=== PATIENT | female | born 1990 | race Caucasian/White ===

== ENCOUNTER 2017-03-06 23:17 | Day surgery (SDC) | payer MEDICAID ==
[~2017-03-06] VITALS: Ht 170.2 cm; Wt 113.9 kg
[~2017-03-06 23:17] MED LIST: ACHYD1T PO; BENZ200C25 PO; CEPH-507 PO; CEPH500C PO; CYCL10TA9 PO; DOCU100C37 PO; DOXY100C2 PO; HYDR-1231 PO; HYDR-3583 PO; HYDR-3812 PO; IBP800T PO; IBUP-1773 PO; INDO25OR2 PO; INDO50CA PO; MEDR10TA9 PO; METF-380 PO; METR500T PO; ONDA8TAB9 PO; PREN-37 PO; PREN-93 PO
[2017-03-06] MEDS ORDERED: morphine INJ 10 MG/ML 1ML (SYR OR VIAL) IVP STA (23:35)
[2017-03-06] MEDS ORDERED: NS IV 1000 ML 1,000 ML IV ONE (23:35)
--- NOTE | 2017-03-06 23:35 | ED Abdominal Pain ---
General Chief Complaint: Abdominal/GI Problems Stated Complaint: RT SIDE PAIN,POSS FEVER,LIGHTHEADED Source of Information: Patient, Family (mom) Exam Limitations: No Limitations History of Present Illness Time Seen By Provider: 23:30 Initial Comments Patient presents to ER with chief complaint of right-sided back and flank pain that started 3 days ago and is constantly progressively getting worse. She is not accompanied by any nausea or chills diarrhea or skin rash or shortness of breath or chest pain. However she is having a fever she feel and is febrile in the ER tonight. She's never had a kidney stone or surgery on her abdomen except for a . She was seen in [place] earlier tonight and was given Toradol which she says did not help. Past she has received fend for pain but it was made her pass out. She says she took a Tylenol earlier today but it did not help much. She says she was told she had a bladder infection at [place] but that did not check her blood or give her any antibiotics. They gave her a prescription for antibiotics that she says she did not have the money to get it so she did not fill them. She is not sure what antibiotic that gave her. She has a Mirena in place Allergies and Home Medications Allergies Coded Allergies: fentanyl (Unverified Adverse Reaction, Intermediate, FLUSHING OF SKIN WITH WARM SENSATION AND FAINTING, 01/12/16) Home Medications Docusate Sodium 100 Mg Capsule, 100 MG PO BID PRN for CONSTIPATION, #40 Prescribed by: LOLLY DICKERSON on 05/17/16 1013 Hydrocodone/Acetaminophen 1 Each Tablet, 0 TAB PO Q4H PRN for PAIN, #50 Prescribed by: LOLLY DICKERSON on 05/17/16 1013 Ibuprofen 600 Mg Tablet, 600 MG PO Q6H, #80 Prescribed by: LOLLY DICKERSON on 05/17/16 1013 Vit/Iron Fumarate/FA 1 Each Tablet, 1 EACH PO DAILY, (Reported) Review of Systems Constitutional: No chills, No diaphoresis, No dizziness, fever, malaise Respiratory: Denies Cough, Denies Shortness of Air Cardiovascular: Denies Chest Pain, Denies Palpitations, Denies Syncope Gastrointestinal: See HPI, Abdominal Pain, Denies Constipated, Denies Diarrhea , Denies Nausea, Denies Vomiting Genitourinary: See HPI, Burning, Denies Discharge, Frequency, Flank Pain, Denies Hematuria, Pain Musculoskeletal: see HPI, back pain, No joint pain Skin: No pruritus, No rash Psychiatric/Neurological: Denies Headache, Denies Numbness Past Xjxrocn-Onagtk-Hhaaxt Hx Patient Social History Alcohol Use: Denies Use Recreational Drug Use: No Smoking Status: Never a Smoker Type Used: Cigarettes Recent Foreign Travel: No Contact w/Someone Who Travel: No Recent Hopitalizations: No Immunizations Up To Date Tetanus Booster (TDap): Less than 5yrs PED Vaccines UTD: Yes Date of Influenza Vaccine: May 18, 2015 Seasonal Allergies Seasonal Allergies: No Surgeries HX Surgeries: Yes (D&C, HERNIA REPAIR, CERCLAGE PLACEMENT) Surgeries: Abdominal Respiratory Hx Respiratory Disorders: No Cardiovascular Hx Cardiac Disorders: No Neurological Hx Neurological Disorders: No Reproductive System Hx Reproductive Disorders: Yes (BICORNUATE UTERUS, INCOMPETENT CERVIX) Sexually Transmitted Disease: No HIV/AIDS: No Female Reproductive Disorders: Denies Genitourinary Hx Genitourinary Disorders: No Gastrointestinal Hx Gastrointestinal Disorders: Yes Gastrointestinal Disorders: Gastroesophageal Reflux Musculoskeletal Hx Musculoskeletal Disorders: No Endocrine Hx Endocrine Disorders: No HEENT HX ENT Disorders: No Loss of Vision: Denies Hearing Impairment: Denies Cancer Hx Cancer: No Psychosocial Hx Psychiatric Problems: No Integumentary HX Skin/Integumentary Disorder: No Blood Transfusions Hx Blood Disorders: No Adverse Reaction to a Blood Tr: No (N/A) Family Medical History Significant Family History: No Pertinent Family Hx Family Medial History: Arthritis 19 MOTHER FH: COPD (chronic obstructive pulmonary disease) 19 MOTHER FH: bipolar disorder G8 BROTHER Physical Exam Vital Signs VS - Last 72 Hours, by Label 03/06/17 23:31 Temp 100.7 Pulse 131 Resp 18 B/P (MAP) 130/89 Pulse Ox 98 O2 Delivery Room Air Capillary Refill : General Appearance: WD/WN, mild distress Respiratory: lungs clear, normal breath sounds Cardiovascular: normal peripheral pulses, regular rate, rhythm, no edema Peripheral Pulses: 3+ Radial Pulses (R), 3+ Radial Pulses (L) Gastrointestinal: normal bowel sounds, non tender, soft, other (right flank pain) Extremities: normal range of motion, normal capillary refill Back: normal inspection, CVA tenderness (R), No CVA tenderness (L) Neurologic/Psychiatric: alert, oriented x 3 Skin: normal color, warm/dry Focused Exam Evaluation Sepsis Stage: Sepsis Possible Source: Genitouriary Time of Focused Exam: 23:52 Respiratory: Lungs Clear, Normal Breath Sounds, No Accessory Muscle Use, No Respiratory Distress Cardiovascular: Regular Rate, Rhythm (tachycardia), No Murmur, Normal Peripheral Pulses Capillary Refill: Less Than 3 Seconds Peripheral Pulses: 3+ Radial Pulses (R), 3+ Radial Pulses (L) Skin: normal color, warm/dry Lactic Acid Level Laboratory Tests Test 03/06/17 23:56 Lactic Acid Level 0.78 MMOL/L (0.50-2.00) Progress/Results/Core Measures Results/Orders Lab Results Laboratory Tests Test 03/06/17 23:35 03/06/17 23:56 Range/Units Urine Color YELLOW Urine Clarity SLIGHTLY CLOUDY Urine pH 7 5-9 Urine Specific [place] 1.010 L 1.016-1.022 Urine Protein 2+ H NEGATIVE Urine Glucose (UA) NEGATIVE NEGATIVE Urine Ketones NEGATIVE NEGATIVE Urine Nitrite NEGATIVE NEGATIVE Urine Bilirubin NEGATIVE NEGATIVE Urine Urobilinogen 4 H NORMAL MG/DL Urine Leukocyte Esterase 3+ H NEGATIVE Urine RBC (Auto) 4+ H NEGATIVE Urine RBC 5-10 H /HPF Urine WBC 2-5 /HPF Urine Squamous Epithelial Cells 2-5 /HPF Urine Crystals NONE /LPF Urine Bacteria FEW H /HPF Urine Casts NONE /LPF Urine Mucus NEGATIVE /LPF Urine Culture Indicated YES Urine Test NEGATIVE NEGATIVE White Blood Count 12.0 H 4.3-11.0 10^3/uL Red Blood Count 5.22 4.35-5.85 10^6/uL Hemoglobin 14.6 11.5-16.0 G/DL Hematocrit 44 35-52 % Mean Corpuscular Volume 84 80-99 FL Mean Corpuscular Hemoglobin 28 25-34 PG Mean Corpuscular Hemoglobin Concent 33 32-36 G/DL Red Cell Distribution Width 13.8 10.0-14.5 % Platelet Count 169 130-400 10^3/uL Mean Platelet Volume 11.0 H 7.4-10.4 FL Neutrophils (%) (Auto) 78 H 42-75 % Lymphocytes (%) (Auto) 11 L 12-44 % Monocytes (%) (Auto) 8 0-12 % Eosinophils (%) (Auto) 3 0-10 % Basophils (%) (Auto) 0 0-10 % Neutrophils # (Auto) 9.4 H 1.8-7.8 X 10^3 Lymphocytes # (Auto) 1.3 1.0-4.0 X 10^3 Monocytes # (Auto) 1.0 0.0-1.0 X 10^3 Eosinophils # (Auto) 0.4 H 0.0-0.3 10^3/uL Basophils # (Auto) 0.0 0.0-0.1 10^3/uL Prothrombin Time 13.7 12.2-14.7 SEC INR Comment 1.1 0.8-1.4 Activated Partial Thromboplast Time 34 24-35 SEC Sodium Level 138 135-145 MMOL/L Potassium Level 3.4 L 3.6-5.0 MMOL/L Chloride Level 108 H 98-107 MMOL/L Carbon Dioxide Level 19 L 21-32 MMOL/L Anion Gap 11 5-14 MMOL/L Blood Urea Nitrogen 9 7-18 MG/DL Creatinine 0.74 0.60-1.30 MG/DL Estimat Glomerular Filtration Rate > 60 BUN/Creatinine Ratio 12 Glucose Level 109 H 70-105 MG/DL Lactic Acid Level 0.78 0.50-2.00 MMOL/L Calcium Level 8.8 8.5-10.1 MG/DL Magnesium Level 1.5 L 1.8-2.4 MG/DL Total Bilirubin 2.0 H 0.1-1.0 MG/DL Aspartate Amino Transf (AST/SGOT) 22 5-34 U/L Alanine Aminotransferase (ALT/SGPT) 35 0-55 U/L Alkaline Phosphatase 87 40-136 U/L Total Protein 6.7 6.4-8.2 GM/DL Albumin 3.6 3.2-4.5 GM/DL My Orders Orders - AIDE COOPER Cbc With Automated Diff (03/06/17 23:35) Comprehensive Metabolic Panel (03/06/17 23:35) Hcg,Qualitative Urine (03/06/17 23:35) Lactic Acid Analyzer (03/06/17 23:35) Magnesium (03/06/17 23:35) Ua Culture If Indicated (03/06/17 23:35) Morphine Injection (Morphine Injection (03/06/17 23:35) Saline Lock/Iv-Start (03/06/17 23:35) Ns Iv 1000 Ml (Sodium Chloride 0.9%) (03/06/17 23:35) Blood Culture (03/06/17 23:35) Sputum Culture (03/06/17 23:35) Protime With Inr (03/06/17 23:35) Partial Thromboplastin Time (03/06/17 23:35) O2 (03/06/17 23:35) Saline Lock/Iv-Start (03/06/17 23:35) Ceftriaxone Injection (Rocephin Injectio (03/07/17 00:00) Urine Culture (03/06/17 23:35) Ct Abd/Pelvis Wo(Kidney Stone) (03/07/17 00:00) Chest 1 View, Ap/Pa Only (03/07/17 00:05) Magnesium Oxide Tablet (Mag Ox Tablet) (03/07/17 00:45) Potassium Chloride (Tablet) (K Dur Table (03/07/17 00:45) Morphine Injection (Morphine Injection (03/07/17 01:15) Medications Given in ED Current Medications Medications Dose Ordered Sig/Kristian Route Start Time Stop Time Status Last Admin Dose Admin Ceftriaxone Sodium 1000 mg/ Sodium Chloride 50 ml @ 100 mls/hr ONCE ONCE IV 03/07/17 00:00 03/07/17 00:30 DC 03/07/17 00:07 100 MLS/HR Magnesium Oxide 400 mg ONCE ONCE PO 03/07/17 00:45 03/07/17 00:46 DC 03/07/17 00:46 400 MG Morphine Sulfate 2 mg ONCE PRN IVP 03/07/17 01:15 03/07/17 05:17 DC 03/07/17 01:42 2 MG Potassium Chloride 20 meq ONCE ONCE PO 03/07/17 00:45 03/07/17 00:46 DC 03/07/17 00:46 20 MEQ Sodium Chloride 1,000 ml @ 0 mls/hr Q0M ONCE IV 03/06/17 23:35 03/06/17 23:39 DC 03/07/17 00:07 1,000 MLS/HR Vital Signs/I&O Vital Sign - Last 12Hours 03/06/17 23:31 Temp 100.7 Pulse 131 Resp 18 B/P (MAP) 130/89 Pulse Ox 98 O2 Delivery Room Air Progress Note #1: Time: 23:51 Progress Note Tachycardia and suspected urinary tract infection and fever of 100.7. We'll start a sepsis workup. She will not accept fentanyl or Toradol since she recently got it we will just try a very low-dose of morphine. We'll start her on Rocephin IV soon as blood cultures are obtained. Progress Note #2: Time: 00:02 Progress Note Urinalysis is only demonstrative of a few white blood cells 2-5 however there is a fair amount of red blood cells. Given her right flank pain a kidney stone rises in the differential. We will go ahead and add a CT abdomen without kidney stone study. Diagnostic Imaging Diagonstic Imaging: Xray Plain Films/CT/US/NM/MRI: chest Comments No acute cardiopulmonary processes noted. Reviewed: Reviewed by Me Diagonstic Imaging: CT Plain Films/CT/US/NM/MRI: abdomen (pelvis without kidney stone study) Comments No kidney stone noted. Intra-abdominal organs are otherwise grossly unremarkable for noncontrast try a CT with small nonspecific retroperitoneal lymph nodes no evidence of significant bowel loop dilatation suggesting obstructive process and there is a small amount of free fluid in the pelvis however is no evidence for free intraperitoneal gas. There are some mild right-sided perinephric stranding without definite evidence of hydronephrosis or your stone. Acute pyloric cannot be excluded also correlate with your clinical lab findings. The appendix is mildly prominent measuring up to 8 mm with a small appendicolith and very mild infiltration of the periappendiceal fat. Should consider mild acute appendicitis. Reviewed: Reviewed by Me Departure Communication Time/Spoke to Admitting Phy: 01:[address] Forman, General Surgery discussed the radiographic findings of the CT as well as her sepsis, mild white count, McBurney's point tenderness with rebound tenderness but no generalized peritonitis. Patient's fever of 100.7. Impression Impression: Primary Impression: Appendicitis Qualified Codes: K35.3 - Acute appendicitis with localized peritonitis Additional Impression: Sepsis Qualified Codes: A41.9 - Sepsis, unspecified organism Disposition: ADMITTED INPATIENT Condition: Stable Decision to Admit Reason: Admit from ER (General) Decision to Admit/Date: Mar 07, 2017 Time/Decision to Admit Time: 01:50 Departure-Patient Inst. Referrals: TIRSO MOE MD (PCP/Family) Primary Care Physician Copy Copies To 1: TIRSO MOE MD, TITUS J Mar 06, 2017 23:35
[2017-03-06 23:43] LABS: BILIRUBIN,URINE NEGATIVE (NEGATIVE); KETONES,URINE NEGATIVE (NEGATIVE); LEUKOCYTE ESTERASE ,URINE 3+ (NEGATIVE); NITRITE,URINE NEGATIVE (NEGATIVE); PH,URINE 7 (5-9); PROTEIN,URINE 2+ (NEGATIVE); UROBILINOGEN,URINE 4 MG/DL (NORMAL)
[2017-03-07] MEDS ORDERED: cefTRIAXone INJECTION 1,000 MG in NS (IVPB) 50 ML IV ONE ×2
[2017-03-07 00:14] LABS: BASOPHILS % (AUTO) 0 % (0-10); EOSINOPHILS # (AUTO) 0.4 10^3/uL (0.0-0.3); EOSINOPHILS % (AUTO) 3 % (0-10); LYMPHOCYTES # (AUTO) 1.3 X 10^3 (1.0-4.0); LYMPHOCYTES % (AUTO) 11 % (12-44); MEAN CORPUSCULAR HEMOGLOBIN 28 PG (25-34); MEAN CORPUSCULAR HGB CONC 33 G/DL (32-36); MEAN CORPUSCULAR VOLUME 84 FL (80-99); MONOCYTES % (AUTO) 8 % (0-12); NEUTROPHILS # (AUTO) 9.4 X 10^3 (1.8-7.8); NEUTROPHILS % (AUTO) 78 % (42-75); PLATELET COUNT 169 10^3/uL (130-400); RED BLOOD COUNT 5.22 10^6/uL (4.35-5.85); RED CELL DISTRIBUTION WIDTH 13.8 % (10.0-14.5)
[2017-03-07 00:35] LABS: ALANINE AMINOTRANSFERASE 35 U/L (0-55); ALBUMIN 3.6 GM/DL (3.2-4.5); ANION GAP 11 MMOL/L (5-14); ASPARTATE AMINO TRANSFERASE 22 U/L (5-34); BLOOD UREA NITROGEN 9 MG/DL (7-18); BUN/CREATININE RATIO 12; CALCIUM 8.8 MG/DL (8.5-10.1); CARBON DIOXIDE 19 MMOL/L (21-32); CHLORIDE 108 MMOL/L (98-107); CREATININE SERUM 0.74 MG/DL (0.60-1.30); GFR ESTIMATED > 60; GLUCOSE 109 MG/DL (70-105); MAGNESIUM 1.5 MG/DL (1.8-2.4); POTASSIUM 3.4 MMOL/L (3.6-5.0); SODIUM 138 MMOL/L (135-145); TOTAL PROTEIN 6.7 GM/DL (6.4-8.2)
[2017-03-07] MEDS ORDERED: KCL 20 MEQ TAB (K-DUR) PO ONE (00:45)
[2017-03-07] MEDS ORDERED: MAGNESIUM OXIDE (MAG-OX)400 MG TAB PO ONE (00:45)
[2017-03-07 01:06] LABS: INR 1.1 (0.8-1.4); PROTHROMBIN TIME PATIENT 13.7 SEC (12.2-14.7)
[2017-03-07] MEDS: morphine INJ 4 MG/ML 1 ML (VIAL/SYRINGE) IVP PRN ×5 (01:42→11:01)
[2017-03-07 03:22] VITALS: BP 123/81
[2017-03-07] MEDS ORDERED: NS IV 1000 ML 1,000 ML IV SCH (04:00)
[2017-03-07] MEDS ORDERED: ONDANSETRON 4 MG/2 ML (SDV) Z0FRAN IVP PRN ×2 (04:00→07:30)
[2017-03-07] MEDS ORDERED: BUP/EPI 0.25% 1:200,000 (MARCAINE) 10 ML VIAL IJ ONE (05:08)
[2017-03-07] MEDS ORDERED: ceFAZolin 1,000 MG (ANCEF) VIAL ONE (05:40)
[2017-03-07] MEDS ORDERED: metroNIDAZOLE 500MG/100ML IVPB 100 ML ONE (05:40)
[2017-03-07] MEDS ORDERED: ONDANSETRON 4 MG/2 ML (SDV) Z0FRAN ONE (05:42)
[2017-03-07] MEDS ORDERED: proPOfol 200 MG/20 ML (DIPRIVAN) VIAL IV ONE (05:42)
[2017-03-07] MEDS ORDERED: ROCURONIUM 50 MG/5 ML (ZEMURON) VIAL IV ONE (05:42)
[2017-03-07] MEDS ORDERED: SEVOFLURANE (ULTANE) 15 ML INHAL SOLN ONE (05:42)
[2017-03-07] MEDS ORDERED: MIDAZOLAM 2 MG/2 ML (VERSED) VIAL ONE (05:42)
[2017-03-07] MEDS ORDERED: LACTATED RINGERS 1,000 ML IV ONE ×2 (05:42→06:28)
[2017-03-07] MEDS ORDERED: LIDOCAINE PF 2% 5 ML (XYLOCAINE) VIAL ONE (05:42)
[2017-03-07] MEDS ORDERED: fentaNYL INJECTION 100 MCG/2 ML AMP ONE (05:43)
--- NOTE | 2017-03-07 06:01 | History & Physicial ---
History of Present Illness History of Present Illness Reason for visit/HPI right lower quadrant pain, nausea and anorexia for [address] confirms acute appendicitis. Date of Admission Mar 07, 2017 at 2:12 am Date Seen by Provider: Mar 07, 2017 Time Seen by Provider: 05:42 I consulted on this patient on 03/07/17 05:57 Attending Physician Alyssa Posadas MD Admitting Physician Mayra Gonzalez MD Consult Allergies and Home Medications Allergies Coded Allergies: fentanyl (Unverified Adverse Reaction, Intermediate, FLUSHING OF SKIN WITH WARM SENSATION AND FAINTING, 01/12/16) Home Medications Docusate Sodium 100 Mg Capsule, 100 MG PO BID PRN for CONSTIPATION, #40 Prescribed by: LOLLY DICKERSON on 05/17/16 1013 Hydrocodone/Acetaminophen 1 Each Tablet, 0 TAB PO Q4H PRN for PAIN, #50 Prescribed by: LOLLY DICKERSON on 05/17/16 1013 Ibuprofen 600 Mg Tablet, 600 MG PO Q6H, #80 Prescribed by: LOLLY DICKERSON on 05/17/16 1013 Vit/Iron Fumarate/FA 1 Each Tablet, 1 EACH PO DAILY, (Reported) Past Idcrpjf-Buqbdu-Laiycj Hx Patient Social History Marrital Status: single Employed/Student: employed Alcohol Use: Occasionally Uses Recreational Drug Use: No Smoking Status: Current Everyday Smoker Type Used: Cigarettes 2nd Hand Smoke Exposure: Yes Physical Abuse Screen: No Sexual Abuse: No Recent Foreign Travel: No Contact w/other who traveled: No Recent Hopitalizations: No Recent Infectious Disease Expo: No Immunizations Up To Date Tetanus Booster (TDap): Less than 5yrs Date of Influenza Vaccine: May 18, 2015 Seasonal Allergies Seasonal Allergies: No Surgeries HX Surgeries: Yes (D&C, HERNIA REPAIR, CERCLAGE PLACEMENT) Surgeries: Abdominal, Section Respiratory Hx Respiratory Disorders: No Cardiovascular Hx Cardiovascular Disorders: No Neurological Hx Neurological Disorders: No Reproductive System Hx Reproductive Disorders: Yes (BICORNUATE UTERUS, INCOMPETENT CERVIX) Sexually Transmitted Disease: No HIV/AIDS: No Female Reproductive Disorders: Polycystic Ovarian Dis Genitourinary Hx Genitourinary Disorders: No Gastrointestinal Hx Gastrointestinal Disorders: Yes Gastrointestinal Disorders: Gastroesophageal Reflux Musculoskeletal Hx Musculoskeletal Disorders: No Endocrine Hx Endocrine Disorders: No HEENT HX ENT Disorders: No Loss of Vision: Denies Hearing Impairment: Denies Cancer Hx Cancer: No Psychosocial Hx Psychiatric Problems: No Integumentary HX Skin/Integumentary Disorder: No Blood Transfusions Hx Blood Disorders: No Adverse Reaction to a Blood Tr: No (N/A) Family Medical History Significant Family History: No Pertinent Family Hx Family Hx: Arthritis 19 MOTHER Diabetes mellitus 19 FATHER FH: COPD (chronic obstructive pulmonary disease) 19 MOTHER FH: bipolar disorder G8 BROTHER FH: congestive heart failure 19 MOTHER Constitutional: malaise EENTM: no symptoms reported Respiratory: no symptoms reported Cardiovascular: no symptoms reported Gastrointestinal: abdominal pain (RLQ), loss of appetite, nausea Genitourinary: no symptoms reported Musculoskeletal: no symptoms reported Skin: no symptoms reported Psychiatric/Neurological: No Symptoms Reported Physical Exam Vital Signs Vital Sign - Last 12Hours 03/06/17 23:31 Temp 100.7 Pulse 131 Resp 18 B/P (MAP) 130/89 Pulse Ox 98 O2 Delivery Room Air Capillary Refill : Less Than 3 Seconds General Appearance: Moderate Distress HEENT: Normal ENT Inspection Neck: Normal Inspection Respiratory: Lungs Clear Cardiovascular: Regular Rate, Rhythm Gastrointestinal: Tenderness Rectal: Deferred Extremity: Normal Inspection Neurologic/Psychiatric: Alert, Oriented x3 Skin: Warm/Dry Assessment/Plan Assessment and Plan Lady with acute appendicitis. Offered laparoscopic appendectomy and reviewed the operative details, expected recovery, complications of wound infection and intra-abdominal abscess. Seems to be in agreement to proceed. Problems: Clinical Quality Measures DVT/VTE Risk/Contraindication: Risk Factor Score Per Nursin RFS Level Per Nursing on Admit: 2=Moderate ALYSSA POSADAS MD Mar 07, 2017 6:00 am
--- NOTE | 2017-03-07 06:01 | Progress Note-Pre Operative ---
Pre-Operative Progress Note H&P Reviewed The H&P was reviewed, patient examined and no changes noted. Date Seen by Provider: Mar 07, 2017 Time Seen by Provider: 05:41 Date H&P Reviewed: Mar 07, 2017 Time H&P Reviewed: 06:01 Pre-Operative Diagnosis: acute appendicitis ALYSSA POSADAS MD Mar 07, 2017 6:01 am
[2017-03-07] MEDS ORDERED: morphine INJ 10 MG/ML 1ML (SYR OR VIAL) ONE (06:28)
[2017-03-07] MEDS ORDERED: LACTATED RINGERS 1,000 ML IV SCH (06:30)
[2017-03-07] MEDS ORDERED: GLYCOPYRROLATE 0.2 MG/ML (ROBINUL) 2 ML VIAL ONE (06:37)
[2017-03-07] MEDS ORDERED: NEOSTIGMINE (BLOXIVERZ ) 1 MG/1ML 10 ML VIAL ONE (06:37)
--- NOTE | 2017-03-07 06:47 | Operative Report ---
Operative Report Date of Procedure/Surgery Mar 07, 2017 Surgeon (s) ALYSSA POSADAS MD Ring Cutter Lathe Operator (s): not applicable Post-Operative Diagnosis same Procedure Performed laparoscopic appendectomy Description of Procedure Anesthesia Type: General Estimated blood loss (mL): minimal Specimen(s) collected/removed appendix Description of the Procedure Indication for procedure: This lady presented with 2 days history of right lower quadrant abdominal pain, confirmed to be due to acute appendicitis by CT scan. She was offered laparoscopic appendectomy. Informed consent was obtained after reviewing the operative details and complications of wound infection and intra-abdominal abscess Description of the procedure: She was placed supine on the operative table and general anesthesia induced using an endotracheal tube. Ancef and Flagyl were administered intravenously as prophylaxis against wound infection. Sequential compression devices were placed around her legs, to minimize the risk of venous thrombosis. Abdomen was prepared and draped in the usual sterile manner. Due to previous repair of ventral hernia I elected to establish pneumoperitoneum using a Veress needle introduced over the left subcostal margin. Intra-abdominal pressure was maintained at 15 mmHg, using carbon dioxide insufflation. A 5 mm trocar was placed and anatomy visualized 30 laparoscope. Omentum was adherent to the undersurface of the umbilicus. Under direct view, I placed a 12 mm left lower quadrant and took down the omentum using endo-scissors. Subsequently, a 12 mm trocar was placed superior to the umbilicus, followed by a 5 mm trocar over the the right upper quadrant. Patient was then turned and Trendelenburg position, with the right side tilted up. Omentum was wrapped around the cecum. Once it was displaced, and inflamed, turgid appendix was found in a retrocecal position. Mesoappendix and the base of the appendix where managed using an Endo DUNCAN vascular stapler. Hemostasis along the staple line was satisfactory. Turbid fluid in the pelvis was suctioned and the area irrigated with saline. Appendix was then placed in an Endo Catch bag and removed via the supraumbilical trocar site. The fascia over this incision was closed using #1 Vicryl and skin incisions were closed using 4- 0 Vicryl, in a subcuticular fashion. 0.25 percent Marcaine with epinephrine was infiltrated along the incisions, both pre-emptively and at the conclusion of the operation. She tolerated the procedure well and was taken back to the nursing area in a stable condition. Findings of the Procedure See operative Allergies and Home Medications Allergies Coded Allergies: fentanyl (Unverified Adverse Reaction, Intermediate, FLUSHING OF SKIN WITH WARM SENSATION AND FAINTING, 01/12/16) Home Medications Docusate Sodium 100 Mg Capsule, 100 MG PO BID PRN for CONSTIPATION, #40 Prescribed by: LOLLY DICKERSON on 05/17/16 1013 Hydrocodone/Acetaminophen 1 Each Tablet, 0 TAB PO Q4H PRN for PAIN, #50 Prescribed by: LOLLY DICKERSON on 05/17/16 1013 Ibuprofen 600 Mg Tablet, 600 MG PO Q6H, #80 Prescribed by: LOLLY DICKERSON on 05/17/16 1013 Vit/Iron Fumarate/FA 1 Each Tablet, 1 EACH PO DAILY, (Reported) ALYSSA POSADAS MD Mar 07, 2017 6:46 am
[2017-03-07] MEDS ORDERED: HYDR-3820 PO (06:50)
--- NOTE | 2017-03-07 06:51 | Discharge Inst-Simple/Standard ---
Discharge Inst-Standard Discharge Medications New, Converted or Re-Newed RX: RX on Chart Patient Instructions/Follow Up Plan of Care/Instructions/FU: Band-Aids off in 48 hours. Follow-up in 10 days. Activity as Tolerated: Yes Discharge Diet: No Restrictions ALYSSA POSADAS MD Mar 07, 2017 6:51 am
[2017-03-07] MEDS ORDERED: HYDROcodone/APAP 5 MG/325 MG (LORTAB) TAB PO PRN (07:00)
[2017-03-07] MEDS ORDERED: fentaNYL INJECTION 100 MCG/2 ML AMP IV PRN (07:00)
[2017-03-07] MEDS ORDERED: ONDANSETRON 4 MG/2 ML (SDV) Z0FRAN IV PRN (07:00)
[2017-03-07] MEDS ORDERED: ceFAZolin INJECTION 1,000 MG in NS (IVPB) 50 ML IV NR ×2 (07:00→13:00)
--- NOTE | 2017-03-07 07:23 | Diagnostic Imaging Report ---
INDICATION: Right-sided flank pain. TECHNIQUE: Single view chest 12:21 AM. CORRELATION STUDY: None FINDINGS: The heart size, mediastinal configuration and pulmonary vascularity are within normal limits. The lungs are clear with no consolidating infiltrate. There is no significant effusion or pneumothorax. IMPRESSION: 1. Negative portable chest. Dictated by: Dictated on workstation # [id number]
[2017-03-07] MEDS ORDERED: morphine INJ 10 MG/ML 1ML (SYR OR VIAL) IVP PRN (07:30)
--- NOTE | 2017-03-07 07:31 | Diagnostic Imaging Report ---
PROCEDURE: CT urinary tract, rule out kidney stone. TECHNIQUE: Multiple contiguous axial images were obtained through the abdomen and pelvis without the use of intravenous contrast. INDICATION: Right-sided flank pain. CORRELATION STUDY: None. FINDINGS: LOWER THORAX: Clear. LIVER: Unremarkable. GALLBLADDER: Somewhat contracted otherwise unremarkable. No bile duct dilatation. SPLEEN: Unremarkable. PANCREAS: Unremarkable. ADRENAL GLANDS: Unremarkable. KIDNEYS: There is mild right-sided perinephric and ureteric stranding present. The right kidney has a slightly engorged appearance as well. Definitive calcification within the right ureter is not visualized. No definitive bladder stone. Left kidney and collecting system unremarkable. ABDOMINAL AORTA: Unremarkable, nonaneurysmal. A few scattered small retroperitoneal lymph nodes. GASTROINTESTINAL TRACT: The appendix is mildly prominent at 9 mm. No gas within the lumen. Small appendicolith mid aspect. Suggestion of mild infiltration of periappendiceal fat. URINARY BLADDER: Relatively decompressed. REPRODUCTIVE: Intrauterine contraceptive device is present. Small amount of free pelvic fluid. OSSEOUS STRUCTURES: No acute abnormality. IMPRESSION: 1. There is a asymmetric right-sided perinephric and ureteric stranding with slight engorged appearance about the right kidney. Definitive obstructing calcified stones are not visualized. This could be reflective perhaps recent passage of a stone. Acute polynephritis could also give this appearance. Perhaps other etiologies for obstructive process not visualized. If symptoms persist, correlation with post contrast imaging recommended 2. The appendix is noted to be mildly prominent suggestion of mild inflammatory changes and appendicolith. This does raise concern for potential acute appendicitis which cannot be excluded by CT findings. Dictated by: Dictated on workstation # [id number]
[2017-03-07 08:00] VITALS: BP 89/54
[2017-03-07 10:57] LABS: BASOPHILS % (AUTO) 0 % (0-10); EOSINOPHILS # (AUTO) 0.1 10^3/uL (0.0-0.3); EOSINOPHILS % (AUTO) 1 % (0-10); LYMPHOCYTES # (AUTO) 1.5 X 10^3 (1.0-4.0); LYMPHOCYTES % (AUTO) 17 % (12-44); MEAN CORPUSCULAR HEMOGLOBIN 28 PG (25-34); MEAN CORPUSCULAR HGB CONC 33 G/DL (32-36); MEAN CORPUSCULAR VOLUME 86 FL (80-99); MEAN PLATELET VOLUME 10.8 FL (7.4-10.4); MONOCYTES # (AUTO) 0.8 X 10^3 (0.0-1.0); MONOCYTES % (AUTO) 9 % (0-12); NEUTROPHILS # (AUTO) 6.5 X 10^3 (1.8-7.8); NEUTROPHILS % (AUTO) 72 % (42-75); PLATELET COUNT 172 10^3/uL (130-400); RED BLOOD COUNT 4.55 10^6/uL (4.35-5.85)
[2017-03-07 11:17] LABS: ALANINE AMINOTRANSFERASE 28 U/L (0-55); ALBUMIN 3.1 GM/DL (3.2-4.5); ANION GAP 6 MMOL/L (5-14); ASPARTATE AMINO TRANSFERASE 16 U/L (5-34); BILIRUBIN,TOTAL 1.5 MG/DL (0.1-1.0); BLOOD UREA NITROGEN 6 MG/DL (7-18); BUN/CREATININE RATIO 9; CALCIUM 8.1 MG/DL (8.5-10.1); CARBON DIOXIDE 23 MMOL/L (21-32); CHLORIDE 109 MMOL/L (98-107); CREATININE SERUM 0.69 MG/DL (0.60-1.30); GFR ESTIMATED > 60; GLUCOSE 106 MG/DL (70-105); MAGNESIUM 1.6 MG/DL (1.8-2.4); POTASSIUM 3.7 MMOL/L (3.6-5.0); SODIUM 138 MMOL/L (135-145); TOTAL PROTEIN 5.8 GM/DL (6.4-8.2)
[2017-03-07] MEDS ORDERED: metroNIDAZOLE 500MG/100ML IVPB 100 ML IV NR (13:00)
[2017-03-07 14:15] VITALS: BP 89/54
[2017-03-07] MEDS ORDERED: KETOROLAC 15 MG/ML VIAL IV SCH (22:00)
== END 2017-03-07 14:15 | disposition home or self-care (01) ==
LOC: EDUNIT# 23:17 → ER 23:20 → UNDOADMIN 03-07 02:12 → 4TH 03-07 02:12 → SDC 03-07 02:12 → UNDODISIN 03-07 14:15 → SDC 03-07 14:15 → ENPENDDIS 03-07 15:00
PROVIDERS: ATTEND Surgery
DX: K35.80 Unspecified acute appendicitis (principal); K21.9 Gastro-esophageal reflux disease without esophagitis; F17.210 Nicotine dependence, cigarettes, uncomplicated; E66.9 Obesity, unspecified; Z68.39 Body mass index [BMI] 39.0-39.9, adult
CPT/HCPCS: 36415; 71010; 74176; 80053; 81000; 83605; 83735; 84703; 85025; 85610; 85730; 87040; 87081; 87088; 87186; 96361; 96365; 96375; 96376